=== PATIENT | female | born 1970 | race Caucasian/White ===

== ENCOUNTER 2019-12-31 07:17 | Outpatient (CLI) | payer OTHER, SELFPAY ==
--- NOTE | 2019-12-31 07:33 | MM_ITS ---
WS: [id number] BILATERAL DIGITAL SCREENING MAMMOGRAM WITH CAD CLINICAL INFORMATION: SCREENING HISTORY: Screening mammogram. No current complaints. COMPARISON: TECHNIQUE: Bilateral CC and MLO. FINDINGS: The breast are composed of extremely dense tissue, which can limit the detection of small underlying mass lesions. 10 mm asymmetric density posterior depth right breast best seen on the MLO view. Recomm end Spot compression views and ultrasound RIGHT BREAST for further evaluation. Vascular calcification. Stable punctate clustered calcifications left breast. Left breast is unchang ed. MM/[place] [id number] IMPRESSION: BI-RADS: 0-Incomplete: Need additional imaging evaluation FOLLOW UP: Need Additional Imaging
== END 2019-12-31 07:18 | disposition home or self-care (01) ==
LOC: RADSHAW 07:19
PROVIDERS: PCP Electrodiagnostic Medicine; Visit Provider Electrodiagnostic Medicine
DX: Z12.31 Encounter for screening mammogram for malignant neoplasm of breast (principal); N64.89 Other specified disorders of breast
CPT/HCPCS: 77067

== ENCOUNTER 2020-01-19 07:38 | Outpatient (CLI) | payer OTHER, SELFPAY ==
--- NOTE | 2020-01-19 07:43 | US_ITS ---
WS: [id number] RIGHT DIGITAL MAMMOGRAPHY WITH CAD CLINICAL INFORMATION: RIGHT BREAST MASS COMPARISON: December 31, 2019 TECHNIQUE: 3 views of the right breast were obtained. FINDINGS: The right breast is composed of heterogeneous fibroglandular density tissue, which can limit the dete ction of small underlying mass lesions. The 10 mm asymmetric density posterior depth right breast best seen on the MLO view less distinct tod ay on the spot compression views. Ultrasound right breast is pending. ULTRASOUND BREAST RIGHT TECHNIQUE: Ultrasound right breast focused area of concern. CLINICAL INFORMATION: RIGHT BREAST MASS COMPARISON: None. FINDINGS: Ultrasound right breast at the 10 and 12:00 position 4 cm from the nipple. Dense underlying breast ti ssue. Incidental benign ductal ectasia. Simple cyst measuring 4.1 x 3.5 mm. No evidence of pathologic mass or lesion. No lesions to target for biopsy. Recommend return to annual screening mammography. US/US breast RT limited* [id number] IMPRESSION: BI-RADS: 2-Benign FOLLOW UP: 1 Year Follow-up Recommend return to annual screening mammography.
== END 2020-01-19 07:39 | disposition home or self-care (01) ==
LOC: RADSHAW 07:39
PROVIDERS: PCP Electrodiagnostic Medicine; Visit Provider Electrodiagnostic Medicine
DX: R92.8 Other abnormal and inconclusive findings on diagnostic imaging of breast (principal); N64.89 Other specified disorders of breast
CPT/HCPCS: 76642; 77065

== ENCOUNTER → 2020-02-09 11:38 | Outpatient (BNVA) | payer OTHER, SELFPAY | PROVIDERS: PCP Electrodiagnostic Medicine; Visit Provider Electrodiagnostic Medicine | DX: Z11.59 Encounter for screening for other viral diseases (principal) | CPT/HCPCS: 87635 ==

== ENCOUNTER → 2020-05-02 13:37 | Outpatient (BNVA) | payer OTHER, SELFPAY | PROVIDERS: PCP Electrodiagnostic Medicine; Visit Provider Electrodiagnostic Medicine | DX: Z11.59 Encounter for screening for other viral diseases (principal) | CPT/HCPCS: 87635 ==

== ENCOUNTER 2020-06-03 13:47 | Outpatient (CLI) | payer OTHER, SELFPAY ==
--- NOTE | 2020-06-03 13:56 | XR_ITS ---
WS: [id number] CERVICAL SPINE TECHNIQUE: 3 views of the cervical spine CLINICAL INFORMATION: WEAKNESS OF LEFT ARM, HX OF CERVICAL SPINE FUSION, RADICULOP COMPARISON: 2 FINDINGS: Straightening of the normal cervical lordosis. Slight anterolisthesis C3 on C4 measuring 2.3 mm and C 4 on C5 also measuring 2.3 mm. Postoperative changes ACDF C6-7 with incomplete appearing interbody fusion. Disc space narrowing wors e at C5-6 with anterior hypertrophic changes. Trace anterolisthesis C7 on T1 measuring 2.2 mm Moderate facet arthropathy throughout the cervical spine worse in the left. XR/XR cervical spine 3V* [id number] IMPRESSION: 1. Postoperative changes ACDF C6-7 with interbody fusion. Incomplete appearing interbody fusion graft with residual disc space lucency. 2. Anterior fusion hardware appears in good position. 3. Disc space narrowing worse at C5-6 anterior hypertrophic changes. 4. Approximately 2.3 mm anterolisthesis C3 on C4 and C4 on C5. 5. 2.2 mm anterolisthesis C7 on T1.
== END 2020-06-03 13:48 | disposition home or self-care (01) ==
LOC: RADWPI 13:50
PROVIDERS: PCP Electrodiagnostic Medicine; Visit Provider Electrodiagnostic Medicine
DX: R53.1 Weakness (principal); Z98.1 Arthrodesis status; M50.10 Cervical disc disorder with radiculopathy, unspecified cervical region
CPT/HCPCS: 72040

== ENCOUNTER 2021-09-04 07:06 | Outpatient (CLI) | payer OTHER, SELFPAY ==
--- NOTE | 2021-09-04 07:10 | MM_ITS ---
WS: [id number] BILATERAL SCREENING DIGITAL BREAST TOMOSYNTHESIS MAMMOGRAM WITH CAD HISTORY: SCREENING COMPARISON: 01/19/2020, 12/31/2019 and 10/06/2018 Bilateral CC and MLO views with tomosynthesis and synthetic mammography submitted. Computer aided det ection analyzed. Breast composition: The breasts are extremely dense, which lowers the sensitivity of mammography. No suspicious masses, microcalcifications or architectural distortion. Dense bilateral fibroglandular de nsities. MM/[place] [id number] IMPRESSION: BI-RADS: 2-Benign FOLLOW UP: 1 Year Follow-up
== END 2021-09-04 07:07 | disposition home or self-care (01) ==
PROVIDERS: PCP Electrodiagnostic Medicine; Visit Provider Electrodiagnostic Medicine
DX: Z12.31 Encounter for screening mammogram for malignant neoplasm of breast (principal)
CPT/HCPCS: 77063; 77067

== ENCOUNTER 2022-09-21 12:37 | Emergency (ER) | payer OTHER, SELFPAY ==
[2022-09-21 13:15] VITALS: BP 139/67; PULSE 85; RESP 16; TEMP 36.9; O2SAT 99; BMI 24.3
--- NOTE | 2022-09-21 13:56 | ED_ITS ---
HPI - Abdominal Pain General: Chief Complaint: Abdominal Pain Stated Complaint: possible tick bite issues Time Seen by Provider: 09/21/22 13:40 Source: patient Mode of arrival: ambulatory History of Present Illness: 51-year-old female presents emergency room planing of abdominal pain she had symptoms began a few hours ago. She had several loose stools she has been nauseous but not vomited anything denies hematochezia or melena. No previous abdominal surgeries that she recently had a tick bite has a lot of myalgias and arthralgias associated with this but no rash. She denies any fever sweats chills no dysuria urgency or frequency no chest pain or shortness of breath. MD elicited complaint: abdominal pain Onset (ago): hour(s) Pain Consistency: constant Exacerbating factors: nothing Relieving factors: nothing Associated Symptoms: Reports nausea; Denies anorexia, belching, bloating, change in bowel habits, change in stool character, chills, coffee ground emesis, constipation, GI cramping, diarrhea, dyspepsia, dysuria, excessive flatus, fever(s), heartburn, hematochezia, hematuria, hematemesis, fecal incontinence, loose stools, melena, poor appetite, syncope and vomiting Review of Systems Const: Denies: fever(s), chills, fatigue or malaise ENMT: Denies: throat pain, ear or mastoid pain, nasal discharge or nasal congestion Card: Denies: chest pain, palpitations, irregular heart rhythm or syncope Resp: Denies: dyspnea, productive cough or non-productive cough GI: Reports: abdominal pain and nausea; Denies: vomiting, hematemesis, coffee ground emesis, heartburn, diarrhea, constipation, bloating, GI cramping, belching, excessive flatus, fecal incontinence, change in bowel habits, change in stool character, hematochezia or melena : Denies: dysuria or hematuria Skin/Breast: Reports: other (Single red lesion site of tick bite with no bull's-eye lesion no other rash) Physical Exam Const: GENERAL APPEARANCE: cooperative and comfortable ORIENTATION/CONSCIOUSNESS: Yes awake, Yes oriented to person, Yes oriented to place and Yes oriented to time HENMT: COMMON NORMALS: normocephalic, atraumatic and hearing grossly normal bilaterally HEAD & SCALP: normocephalic and atraumatic Resp: COMMON NORMALS: normal respiratory effort, No retractions, No use of accessory muscles and clear to auscultation bilaterally AUSCULTATION: clear to auscultation bilaterally Cardio: COMMON NORMALS: regular rate, regular rhythm and No murmurs present (Cardio) RATE: regular rate RHYTHM: regular rhythm GI: COMMON NORMALS: Soft to palpation and No hepatosplenomegaly present AUSCULTATION: Yes normoactive bowel sounds PALPATION: Yes Soft to palpation, No Tenderness to palpation present (GI), No Guarding due to palpation present (GI) and Yes No hepatosplenomegaly present Extremity: COMMON NORMALS: normal to inspection, capillary refill normal, no clubbing, cyanosis or edema, no calf tenderness and no pedal edema Neuro: SENSORIUM/ORIENTATION: Yes oriented to person, Yes oriented to place and Yes oriented to time Skin: COMMON NORMALS: no rashes or lesions noted GENERAL SKIN EXAM: no rashes or lesions noted Course Vital Signs: Vital signs: Vital Signs Temperature 98.4 F 09/21/22 13:15 Pulse Rate 82 09/21/22 16:33 Respiratory Rate 16 09/21/22 13:15 Blood Pressure 130/77 09/21/22 16:33 Pulse Oximetry 96 09/21/22 16:33 Oxygen Delivery Me thod Room Air 09/21/22 13:15 MDM - Abdominal Pain Medical Decision Making Labs and imaging reviewed. No acute findings. She does not have a rash there is no bull's-eye lesion around the area of concern where the previous tick bite was. Suspect this is a viral syndrome is possible to tickborne illness given her normal liver functions lack of a rash from hesitant to have her start on any doxycycline at this point as it is more likely to irritate her stomach which has been her primary complaint today. We will discharge her home follow-up with a tick panel as soon as it is resolved she has any worsening or change symptoms return to her doctor. [id number] medications as needed. Medical Records I reviewed the patient's medical records. Lab Data I reviewed the patient's lab results. 09/21/22 14:00 09/21/22 14:00 Labs/Radiology: Radiology Impressions Abdomen/Pelvis CT 09/21/22 14:48 IMPRESSION: 1. Limited noncontrast examination without CT evidence of acute intra-abdominal or pelvic pathology. 2. Additional findings, as above. Laboratory Results WBC 7.5 10^3/uL (4.0-10.0) 09/21/22 14:00 RBC 5.03 10^6/uL (4.1-5.3) 09/21/22 14:00 Hgb 13.9 g/dL (11.5-15.3) 09/21/22 14:00 Hct 42.0 % (37.0-47.0) 09/21/22 14:00 MCV 83.5 fl (81-99) 09/21/22 14:00 MCH 27.6 pg (28.0-34.0) L 09/21/22 14:00 MCHC 33.1 g/dL (30.0-36.0) 09/21/22 14:00 RDW 12.4 % (12.1-15.1) 09/21/22 14:00 Plt Count 261 10^3/cmm (130-400) 09/21/22 14:00 MPV 9.5 fL (7.4-10.4) 09/21/22 14:00 Neut % (Auto) 86.4 % 09/21/22 14:00 Lymph % (Auto) 10.5 % 09/21/22 14:00 [place] % (Auto) 2.4 % 09/21/22 14:00 Eos % (Auto) 0.1 % 09/21/22 14:00 Baso % (Auto) 0.3 % 09/21/22 14:00 Neut # (Auto) 6.52 10^3/uL (1.8-7.7) 09/21/22 14:00 Lymph # (Auto) 0.8 10^3/uL (0.8-4.8) 09/21/22 14:00 [place] # (Auto) 0.2 10^3/uL (0.2-0.9) 09/21/22 14:00 Eos # (Auto) 0.0 10^3/uL (0.0-0.8) 09/21/22 14:00 Baso # (Auto) 0.0 10^3/uL (0.0-0.1) 09/21/22 14:00 Nucleated RBC % (auto) 0 % 09/21/22 14:00 Nucleated RBCs # 0.0 /100WBC 09/21/22 14:00 Sodium 138 mmol/L (136-145) 09/21/22 14:00 Potassium 3.6 mmol/L (3.5-5.1) 09/21/22 14:00 Chloride 103 mmol/L (98-107) 09/21/22 14:00 Carbon Dioxide 21 mmol/L (22-29) L 09/21/22 14:00 Anion Gap 17.6 (5-19) 09/21/22 14:00 BUN 14 mg/dL (6-20) 09/21/22 14:00 Creatinine 0.6 mg/dL (0.5-0.9) 09/21/22 14:00 GFR Calculation 105.4 mL/min (90-130) 09/21/22 14:00 Glucose 111 mg/dL (65-115) 09/21/22 14:00 Calculated Osmolality 287 mOsm/kg (285-295) 09/21/22 14:00 Calcium 8.9 mg/dL (8.5-10.5) 09/21/22 14:00 Total Bilirubin 0.5 mg/dL (0.15-1.2) 09/21/22 14:00 AST 24 U/L (0-32) 09/21/22 14:00 ALT < 5 U/L (0-33) 09/21/22 14:00 Alkaline Phosphatase 63 U/L (35-105) 09/21/22 14:00 Total Protein 7.1 g/dL (6.6-8.7) 09/21/22 14:00 Albumin 4.4 g/dL (3.5-5.2) 09/21/22 14:00 Globulin 2.7 g/dL (1.3-4.6) 09/21/22 14:00 Lipase 25 U/L (13-60) 09/21/22 14:00 Urine Color Yellow (Yellow) 09/21/22 14:53 Urine Appearance Clear (CLEAR) 09/21/22 14:53 Urine pH 6.5 (5-7) 09/21/22 14:53 Ur Specific [place] 1.010 (1.005-1.030) 09/21/22 14:53 Urine Protein Neg (Negative) 09/21/22 14:53 Urine Glucose (UA) Norm (Normal) 09/21/22 14:53 Urine Ketones Negative (Negative) 09/21/22 14:53 Urine Blood Neg (Negative) 09/21/22 14:53 Urine Nitrate Negative (Negative) 09/21/22 14:53 Urine Bilirubin Neg (Negative) 09/21/22 14:53 Urine Urobilinogen Norm mg/dL (Negative) 09/21/22 14:53 Ur Leukocyte Esterase Negative (Negative) 09/21/22 14:53 Discharge Plan Discharge Patient Disposition: Home Clinical Impression: Abdominal pain Condition: Stable Prescriptions: New promethazine 25 mg tablet 25 mg PO Q6H PRN (Reason: nausea and vomiting) Qty: 20 0RF No Action cyclobenzaprine 10 mg tablet 10 mg PO TID PRN (Reason: Muscle Spasm) alprazolam 0.25 mg tablet 0.25 mg PO DAILY PRN (Reason: Anxiety) Discharge Orders: Discharge ED (Routine); Ordered 09/21/22 Ordered By: Jomar Elmore Referrals: Booker Giraldo, [Primary Care Provider] - Discharge Diet: Clear Liquid Discharge Activity: Increase activity as tolerated Patient Instructions: Abdominal Pain (ED), Opioid Safety, Pain Management Activity Restrictions/Additional Instructions: Labs and imaging of your abdomen were all normal. 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
--- NOTE | 2022-09-21 14:01 | ECG_ITS ---
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 Measurements Intervals [place] Rate: 75 P: 69 IN: 154 QRS: 75 QRSD: 84 T: 48 QT: 340 QTc: 382 Interpretive Statements SINUS RHYTHM POSSIBLE LEFT ATRIAL ENLARGEMENT [-0.1mV P-WAVE IN V1/V2] NONSPECIFIC T-WAVE ABNORMALITY No previous ECG available for comparison Electronically Signed On 09-21-2022 17:03:58 CDT by Gaudencio Sawyer M.D. [email or web address]
[2022-09-21] MEDS: ketorolac 30 mg/mL INJ IVP (14:03)
[2022-09-21] MEDS: sodium chloride 0.9% 1,000 ML 999 ML IV (14:04)
[2022-09-21 14:22] LABS: Basophils % 0.3 %; Eosinophils % 0.1 %; Hemoglobin 13.9 g/dL (11.5-15.3); Lymphocytes # 0.8 10^3/uL (0.8-4.8); Lymphocytes % 10.5 %; Mean Corpuscular HGB Conc 33.1 g/dL (30.0-36.0); Mean Corpuscular Hemoglobin 27.6 pg (28.0-34.0); Mean Corpuscular Volume 83.5 fl (81-99); Mean Platelet Volume 9.5 fL (7.4-10.4); Monocytes # 0.2 10^3/uL (0.2-0.9); Monocytes % 2.4 %; Neutrophils # 6.52 10^3/uL (1.8-7.7); Neutrophils % 86.4 %; Nucleated Red Blood Cells % 0 %; Platelet Count 261 10^3/cmm (130-400); Red Blood Count 5.03 10^6/uL (4.1-5.3); Red Cell Distribution Width 12.4 % (12.1-15.1); White Blood Count 7.5 10^3/uL (4.0-10.0)
[2022-09-21 14:44] LABS: Alanine Aminotransferase < 5 U/L (0-33); Albumin Level 4.4 g/dL (3.5-5.2); Alkaline Phosphatase 63 U/L (35-105); Anion Gap 17.6 (5-19); Aspartate Amino Transferase 24 U/L (0-32); Blood Urea Nitrogen 14 mg/dL (6-20); Calcium 8.9 mg/dL (8.5-10.5); Carbon Dioxide 21 mmol/L (22-29); Chloride 103 mmol/L (98-107); Globulin 2.7 g/dL (1.3-4.6); Glomerular Filtration Rate 105.4 mL/min (90-130); Glucose 111 mg/dL (65-115); Lipase 25 U/L (13-60); Osmolality Calculated 287 mOsm/kg (285-295); Potassium 3.6 mmol/L (3.5-5.1); Sodium 138 mmol/L (136-145); Total Bilirubin 0.5 mg/dL (0.15-1.2); Total Protein 7.1 g/dL (6.6-8.7)
--- NOTE | 2022-09-21 14:48 | CTR_ITS ---
PROCEDURE INFORMATION: Exam: CT Abdomen And Pelvis Without Contrast Exam date and time: 09/21/2022 3:29 PM Age: 51 years old Clinical indication: Abdominal tenderness; Additional info: Abdominal pain TECHNIQUE: Imaging protocol: Computed tomography of the abdomen and pelvis without contrast. Axial, coronal and sagittal reformatted images were created and reviewed. Radiation optimization: All CT scans at this facility use at least one of these dose optimization techniques: automated exposure control; mA and/or kV adjustment per patient size (includes targeted exams where dose is matched to clinical indication); or iterative reconstruction. REPORTING DATA: Count of CT and Cardiac NM exams in prior 12 months: This patient has received 0 known CTs and 0 known cardiac nuclear medicine studies in the 12 months prior to the current study. COMPARISON: No relevant prior studies available. RADIATION DOSE METRICS: Total DLP (mGy-cm): 507.31 FINDINGS: Liver: Subcentimeter low-density hepatic lesions, measuring up to 8 mm in the right hepatic lobe, too small to characterize. Gallbladder and bile ducts: No radiodense gallstones. No biliary ductal dilatation. Pancreas: Unremarkable. Spleen: Unremarkable. Adrenal glands: Normal. No mass. Kidneys and ureters: No mass. No radiodense calculi. No hydronephrosis. Stomach and bowel: Scattered colonic diverticula without evidence of diverticulitis. No obstruction. No bowel wall thickening. No pneumatosis. Appendix: Normal. Intraperitoneal space: No free fluid. No organized fluid collection. No free air. Vasculature: Unremarkable. No aneurysm. Lymph nodes: No pathologically enlarged lymph nodes. Urinary bladder: Unremarkable as visualized. Reproductive: Unremarkable. Bones/joints: No acute osseous abnormality. Osteopenia. Degenerative changes. Soft tissues: Unremarkable. CT/CT abdomen pelvis con [id number] IMPRESSION: 1. Limited noncontrast examination without CT evidence of acute intra-abdominal or pelvic pathology. 2. Additional findings, as above.
[2022-09-21 14:54] VITALS: BP 131/69; PULSE 90; O2SAT 99
[2022-09-21 14:59] LABS: Add Urine Microscopic? NO; Charge for UA Resulting for Rev
[2022-09-21 15:04] LABS: Bilirubin Urine Neg (Negative); Blood Urine Neg (Negative); Glucose Urine UA Norm (Normal); Ketones Urine Negative (Negative); Leukocyte Esterase Urine Negative (Negative); Nitrate Urine Negative (Negative); Protein Urine Neg (Negative); Urine Appearance Clear (CLEAR); Urine Color Yellow (Yellow); Urobilinogen Urine Norm (Negative); pH Urine 6.5 (5-7)
[2022-09-21 15:36] VITALS: BP 133/77; PULSE 86; O2SAT 97
[2022-09-21 16:04] VITALS: BP 130/77; PULSE 84; O2SAT 96
[2022-09-21 16:33] VITALS: BP 130/77; PULSE 82; O2SAT 96
[2022-09-24 13:54] LABS: Lyme AB Screen <0.90 index
[2022-09-28 17:11] LABS: RMSF IGG NOT DETECTED; RMSF IGM NOT DETECTED
[2022-09-28 17:30] LABS: E. Chaffeensis AB IGG <1:64; E. Chaffeensis AB IGM <1:20
== END 2022-09-21 16:34 | disposition home or self-care (01) ==
PROVIDERS: Emergency Provider Family Medicine; PCP Electrodiagnostic Medicine
DX: R10.9 Unspecified abdominal pain (principal); T14.8XXA Other injury of unspecified body region, initial encounter; W57.XXXA Bitten or stung by nonvenomous insect and other nonvenomous arthropods, initial encounter
CPT/HCPCS: 74176; 80053; 81003; 83690; 85025; 86618; 86666; 86757; 93005; 96361; 96374; 99285; J1885; J7030

== ENCOUNTER 2022-10-01 07:42 | Outpatient (CLI) | payer OTHER, SELFPAY ==
--- NOTE | 2022-10-01 07:46 | MM_ITS ---
WS: [id number] BILATERAL SCREENING DIGITAL TOMOSYNTHESIS MAMMOGRAM WITH CAD HISTORY: SCREENING COMPARISON: 09/04/2021, 12/31/2019 Bilateral CC and MLO views with tomosynthesis and synthetic mammography submitted. Computer aided det ection analyzed. Breast composition: The breasts are extremely dense, which lowers the sensitivity of mammography. No suspicious masses, microcalcifications or architectural distortion. MM/[place] [id number] IMPRESSION: BI-RADS: 1-Negative FOLLOW UP: 1 Year Follow-up
== END 2022-10-01 07:43 | disposition home or self-care (01) ==
LOC: RAD 07:44
PROVIDERS: PCP Electrodiagnostic Medicine; Visit Provider Electrodiagnostic Medicine
DX: Z12.31 Encounter for screening mammogram for malignant neoplasm of breast (principal)
CPT/HCPCS: 77063; 77067

== ENCOUNTER 2022-10-17 07:05 | Emergency (ER) | payer OTHER, SELFPAY ==
[2022-10-17 07:17] VITALS: BP 135/81; PULSE 73; RESP 18; TEMP 36.8; O2SAT 100; BMI 23.8
--- NOTE | 2022-10-17 07:22 | W.ED.NECK ---
HPI - Neck Pain/Injury General: Chief Complaint: Neck Pain/Injury Stated Complaint: neck pain Time Seen by Provider: 10/17/22 07:17 Source: patient Mode of arrival: ambulatory Limitations: no limitations History of Present Illness: 51-year-old female states she has had chronic neck pain she states she had neck surgery back in 2014 I believe states she still follows with her spine surgeon in [place] who informed her she is likely going to need another surgery states she has been having some pain on the right side that feels like a nerve pain over the last 2 to 3 days. She denies any severe pain denies any arm weakness. Associated symptoms: Denies headache(s) or nausea Review of Systems Const: Denies: fever(s), chills, body aches or change in appetite ENMT: Denies: throat pain Card: Denies: chest pain Resp: Denies: dyspnea GI: Denies: abdominal pain, nausea or vomiting Musc: Reports: neck pain; Denies: back pain Skin/Breast: Denies: rash Neuro: Denies: headache(s) Physical Exam Const: COMMON NORMALS: no acute distress, patient oriented x3 and healthy appearing HENMT: COMMON NORMALS: normocephalic and atraumatic HEAD & SCALP: normocephalic and atraumatic Neck/C-Spine: COMMON NORMALS: full ROM and supple OTHER: tenderness over right neck no midline pain Chest: COMMONS NORMALS: normal inspection of the chest and normal palpation of entire chest wall Resp: COMMON NORMALS: normal respiratory effort and No retractions Cardio: COMMON NORMALS: regular rate, regular rhythm and No murmurs present (Cardio) RATE: regular rate RHYTHM: regular rhythm GI: COMMON NORMALS: Normal to inspection, nondistended, normoactive bowel sounds present, Soft to palpation, non-tender and no masses PALPATION: Yes Soft to palpation Extremity: COMMON NORMALS: normal to inspection and full ROM Neuro: COMMON NORMALS: patient oriented x3, moves all extremities and no focal motor deficits Psych: COMMON NORMALS: mental status grossly normal, Normal thought process present and cooperative THOUGHT PROCESS: Normal thought process present Skin: COMMON NORMALS: no rashes or lesions noted and no wounds GENERAL SKIN EXAM: no rashes or lesions noted Course Vital Signs: Vital signs: Vital Signs Temperature 98.3 F 10/17/22 07:17 Pulse Rate 73 10/17/22 07:17 Respiratory Rate 18 10/17/22 07:17 Blood Pressure 135/81 10/17/22 07:17 Pulse Oximetry 100 10/17/22 07:17 Oxygen Delivery Me thod Room Air 10/17/22 07:17 MDM - Neck Pain/Injury Medical Decision Making Patient presents with neck pain is chronic in nature she has no signs of cord compression or epidural abscess give her Decadron along with Naprosyn prescription for home she is stable for discharge she is to follow-up with her spine surgeon. Discharge Plan Discharge Patient Disposition: Home Clinical Impression: Neck pain Condition: Stable Prescriptions: No Action cyclobenzaprine 10 mg tablet 10 mg PO TID PRN (Reason: Muscle Spasm) alprazolam 0.25 mg tablet 0.25 mg PO DAILY PRN (Reason: Anxiety) promethazine 25 mg tablet 25 mg PO Q6H PRN (Reason: nausea and vomiting) Qty: 20 0RF Discharge Orders: Discharge ED (Routine); Ordered 10/17/22 Ordered By: Stefany Espinal Referrals: Booker Giraldo DO [Primary Care Provider] - Discharge Diet: Advance as tolerated Discharge Activity: Resume usual activity Patient Instructions: Neck Pain (ED) Coding Level of Care Code ED 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
[2022-10-17] MEDS: ketorolac 60 mg/2 mL INJ IM (07:27)
[2022-10-17] MEDS: dexamethasone 10 mg/mL INJ IM (07:28)
[2022-10-17 07:45] VITALS: BP 135/81; PULSE 73; RESP 18; O2SAT 100
== END 2022-10-17 07:46 | disposition home or self-care (01) ==
PROVIDERS: Emergency Provider Emergency Medicine; PCP Electrodiagnostic Medicine
DX: M54.2 Cervicalgia (principal)
CPT/HCPCS: 96372; 99284; J1100; J1885

== ENCOUNTER 2023-07-11 20:46 | Emergency (ER) | payer OTHER, SELFPAY ==
[2023-07-11 20:49] VITALS: BP 134/80; PULSE 95; RESP 18; TEMP 36.8; O2SAT 99
[2023-07-11 20:51] VITALS: BP 141/83; RESP 14; O2SAT 99
--- NOTE | 2023-07-11 21:05 | W.ED.HA ---
HPI - Headache General: Chief Complaint: Headache Stated Complaint: Migraine Headache\V Time Seen by Provider: 07/11/23 21:04 History of Present Illness: 52-year-old female comes in today with nausea and headache. Patient has a history of cervical spine fusion and occasionally will get a headache when it flares up. Patient reports starting yesterday she felt significant pain and discomfort followed by headache and light sensitivity. Patient also reports some nausea and episodes of vomiting. Patient appears nontoxic. Patient reports that this is abnormal headache for her. Review of Systems General: Reports: 10 or more systems reviewed and unremarkable except in HPI and below Neuro: Reports: headache(s) Physical Exam Const: COMMON NORMALS: alert HENMT: COMMON NORMALS: normocephalic HEAD & SCALP: normocephalic Neck/C-Spine: COMMON NORMALS: full ROM Resp: COMMON NORMALS: normal respiratory effort Cardio: COMMON NORMALS: regular rate RATE: regular rate Back/Pelvis: COMMON NORMALS: thoracic and lumbar spine normal to inspection Extremity: COMMON NORMALS: full ROM Neuro: SENSORIUM/ORIENTATION: Yes alert Skin: COMMON NORMALS: turgor normal GENERAL SKIN EXAM: turgor normal Course Vital Signs: Vital signs: Vital Signs Temperature 98.3 F 07/11/23 20:49 Pulse Rate 95 07/11/23 20:49 Respiratory Rate 14 07/11/23 20:51 Blood Pressure 141/83 07/11/23 20:51 Pulse Oximetry 99 07/11/23 20:51 Oxygen Delivery Me thod Room Air 07/11/23 20:51 MDM - Headache Medical Decision Making Patient presents with headache that started as a cervical strain. Patient now reports significant headache, nausea with vomiting. Differential diagnosis includes not limited to migraine headache, cervical strain, intervertebral disc disease, facet arthritis, tension headache, cluster headache. 2202, patient reports headache had improved after migraine cocktail of Reglan, ketorolac, diphenhydramine, dexamethasone, and saline by COVID bolus. Patient reports pain relief from a 8 to a 10. Patient felt good and wanted to be discharged home. Patient was discharged home with recommendations for follow-up or return to the ER. Patient reported understanding and agreed to plan. No radiology studies performed this visit Discharge Plan Discharge Patient Disposition: Home Clinical Impression: Headache Qualifiers: Headache type: tension-type Headache chronicity pattern: acute headache Intractability: not intractable Qualified Code(s): G44.209 - Tension-type headache, unspecified, not intractable Condition: Stable Prescriptions: No Action cyclobenzaprine 10 mg tablet 10 mg PO TID PRN (Reason: Muscle Spasm) alprazolam 0.25 mg tablet 0.25 mg PO DAILY PRN (Reason: Anxiety) promethazine 25 mg tablet 25 mg PO Q6H PRN (Reason: nausea and vomiting) Qty: 20 0RF Discharge Orders: Discharge ED (Routine); Ordered 07/11/23 Ordered By: Polo Buck Referrals: Booker Giraldo DO [Primary Care Provider] - Discharge Diet: Usual diet Discharge Activity: Increase activity as tolerated Patient Instructions: Acute Headache (ED) Activity Restrictions/Additional Instructions: Home and rest. Drink plenty water and fluids. Activity as tolerated. Follow-up with primary care in 1 week for recheck. Return to ED for new concerns. Coding Level of Care Code ED Messenger Floorperson for Maxwell Ballesteros
[2023-07-11] MEDS: diphenhydrAMINE 50 mg/mL SDV 1mL 25 MG IVP (21:15)
[2023-07-11] MEDS: dexamethasone 10 mg/mL INJ IVP (21:16)
[2023-07-11] MEDS: sodium chloride 0.9% 500 ML 999 ML IV (21:17)
[2023-07-11] MEDS: ketorolac 30 mg/mL INJ 15 MG IVP (21:19)
[2023-07-11] MEDS: metoclopramide 5 mg/mL SDV 2 mL 10 MG IVP (21:22)
[2023-07-11 22:19] VITALS: BP 132/59; PULSE 94; RESP 16; O2SAT 96
== END 2023-07-11 22:20 | disposition home or self-care (01) ==
PROVIDERS: Emergency Provider Nurse Practitioner Family; PCP Electrodiagnostic Medicine
DX: G44.209 Tension-type headache, unspecified, not intractable (principal)
CPT/HCPCS: 96361; 96374; 96375; 99284; J1100; J1200; J1885; J2765; J7040

== ENCOUNTER 2023-10-04 08:53 | Outpatient (CLI) | payer OTHER, SELFPAY ==
--- NOTE | 2023-10-04 09:03 | MM_ITS ---
WS: [id number] VIEWS: MLO and CC views both breasts. 3D digital tomosynthesis is also included in this exam. Comparison made with prior exam of 09/04/2021 and 10/01/2022.. Findings: There was no sign of mass, architectural distortion or suspicious calcification in either breast. Sta ble appearing nodular densities in both breasts the breasts are extremely dense which lowers the sens itivity of mammography. MM/[place] [id number] Impression: BI-RADS: 2-Benign finding. FOLLOW-UP: 1 Year Follow-up This mammogram was also analyzed by the Computer Aided Detection System R2 Imag e Animal Physiologist.
== END 2023-10-04 08:54 | disposition home or self-care (01) ==
LOC: RAD 08:53
PROVIDERS: PCP Electrodiagnostic Medicine; Visit Provider Electrodiagnostic Medicine
DX: Z12.31 Encounter for screening mammogram for malignant neoplasm of breast (principal)
CPT/HCPCS: 77063; 77067

== ENCOUNTER 2024-05-12 14:23 | Outpatient (CLI) | payer OTHER, SELFPAY ==
--- NOTE | 2024-05-12 14:25 | XR_ITS ---
WS: [id number] SCREENING DEXA SCAN [employer] CLINICAL INFORMATION: POSTMENOPAUSAL COMPARISON: None. FINDINGS: The L1-L4 bone mineral density measures 1.564 g/cm2. This corresponds to a T score of 3.2 and Z score of 3.6. Left femoral neck bone mineral density measures 1.130 g/cm2. This corresponds to a T score of 1.0 and Z score of 1.4. Right femoral neck bone mineral density measures 1.097 g/cm2. This corresponds to a T score 0.7of and Z score of 1.1. Mean femoral neck bone mineral density measures 1.114 g/cm2. This corresponds to a T score of 0.8 and Z score of 1.2. XR/XR DEXA axial skeleton* [id number] IMPRESSION: Normal bone mineralization . Patient's FRAX calculated 10 year probability for major osteoporotic fracture i s 8.5% and osteoporotic hip fracture is 0.2%.
== END 2024-05-12 14:24 | disposition home or self-care (01) ==
LOC: RAD 14:24
PROVIDERS: PCP Electrodiagnostic Medicine; Visit Provider Electrodiagnostic Medicine
DX: Z78.0 Asymptomatic menopausal state (principal)
CPT/HCPCS: 77080

== ENCOUNTER 2025-03-16 11:39 | Outpatient (CLI) | payer OTHER, SELFPAY ==
--- NOTE | 2025-03-16 11:40 | MM_ITS ---
WS: [id number] BILATERAL 3D TOMOSYNTHESIS DIGITAL SCREENING MAMMOGRAPHY WITH CAD CLINICAL INFORMATION: SCREENING HISTORY: Screening mammogram. No current complaints. COMPARISON: 2023 TECHNIQUE: Bilateral CC and MLO views. FINDINGS: The breasts are composed of heterogeneous fibroglandular density tissue, which can limit the detection of small underlying mass lesions. No suspicious mass, asymmetry, calcifications, or architectural distortion. No evidence of malignancy. Incidental punctate calcifications. MM/MM [facility] tomosynthesis [id number] IMPRESSION: DENSITY: The breasts are heterogeneously dense, which may obscure small masses. BI-RADS: 2 - Benign FOLLOW UP: 1 Year Follow-up Recommend return to annual screening mammography.
== END 2025-03-16 11:40 | disposition home or self-care (01) ==
PROVIDERS: PCP Electrodiagnostic Medicine; Visit Provider Electrodiagnostic Medicine
DX: Z12.31 Encounter for screening mammogram for malignant neoplasm of breast (principal); R92.333 Mammographic heterogeneous density, bilateral breasts; R92.323 Mammographic fibroglandular density, bilateral breasts; R92.1 Mammographic calcification found on diagnostic imaging of breast
CPT/HCPCS: 77063; 77067